=== PATIENT | male | born 1950 | race American Indian/Alaskan Native ===

== ENCOUNTER 2016-12-31 06:35 | Inpatient (IN) | payer OTHER, BC ==
[2016-12-31] MEDS ORDERED: ONDANSETRON 4 MG/2 ML VIAL IVP ONE (06:55)
[2016-12-31] MEDS ORDERED: NS 1,000 ML IV ONE (06:55)
[2016-12-31 07:04] LABS: % IMMATURE GRANULYOCYTES 0.3 % (0.0-1.1); ABSOLUTE IMMATURE GRANULOCYTES 0.03 10^3/uL (0.00-0.10); ADD DIFF? NO; ADD MORPH? NO; ADD SCAN? NO; ATYPICAL LYMPHOCYTE FLAG 0 (0-99); FRAGMENT RBC FLAG 0 (0-99); HEMATOCRIT 39.8 % (40.0-51.0); HEMOGLOBIN 13.4 g/dL (13.7-17.5); LEFT SHIFT FLG 20 (0-99); LIPEMIA HEMOLYSIS FLAG 80 (0-99); MEAN CELL HEMOGLOBIN 30.3 pg (27.9-34.1); MEAN CELL HEMOGLOBIN CONCENTR. 33.7 g/dL (32.4-36.7); MEAN PLATELET VOLUME 9.7 fL (8.7-11.7); PLATELET CLUMPS FLAG 0 (0-99); PLATELET COUNT 250 10^3/uL (150-400); RED BLOOD CELL COUNT 4.42 10^6/uL (4.40-6.38); RED CELL DISTRIBUTION WIDTH 13.5 % (11.5-15.2)
--- NOTE | 2016-12-31 07:14 | CPEKG ---
Heart Rate: 78 RR Interval: 769 QRSD Interval: 156 QT Interval: 448 QTC Interval: 511 QRS [place]metto: 30 T Wave Palmetto: 10 EKG Severity - ABNORMAL ECG - EKG Impression: Normal sinus rhythm EKG Impression: MULTIFORM VENTRICULAR PREMATURE COMPLEXES EKG Impression: RIGHT BUNDLE BRANCH BLOCK EKG Impression: inferior Q-waves Electronically Signed By: Vianney Middleton 31-Dec-2016 15:24:00
--- NOTE | 2016-12-31 07:21 | EDPHY ---
H & P HPI/ROS: CHIEF COMPLAINT: Abdominal pain, vomiting. HISTORY OF PRESENT ILLNESS: The patient is a 66-year-old male with a history of diabetes who presents with 7/10 upper abdominal achiness that began 4 days ago. He admits feeling diaphoretic and flushed at onset. The pain has been intermittent since then. It is worse at night and worse after he eats. He admits associated nausea and vomiting since last night. No associated fever or diarrhea. No prior similar symptoms. REVIEW OF SYSTEMS: A complete 10-point review of systems was performed and is negative except for those items mentioned in the HPI. Past Medical/Surgical History: Hypertension, diabetes, cardiac bypass x4, cardiac stents, glaucoma. Social History: , lives in [place]. Smoking Status: Never smoked Physical Exam: General Appearance: Alert, actively vomiting Eyes: Pupils equal and round, no conjunctival pallor or injection ENT, Mouth: Mucous membranes moist Neck: Normal inspection Respiratory: Lungs are clear to auscultation Cardiovascular: Regular rate and rhythm Gastrointestinal: Abdomen is soft, epigastric tenderness, normal bowel sounds Neurological: A&O, nonfocal, normal gait Skin: Warm and dry, no rash Extremities: Nontender, no pedal edema Psychiatric: Mood and affect normal Constitutional: Initial Vital Signs Temperature (C) 36.6 C 12/31/16 06:37 Heart Rate 81 12/31/16 06:37 Respiratory Rate 18 12/31/16 06:37 Blood Pressure 150/72 H 12/31/16 06:37 O2 Sat (%) 94 12/31/16 06:37 O2 Delivery Mode Nasal Cannula O2 (L/minute) 2 Allergies/Adverse Reactions: No Known Allergies Allergy (Unverified 12/31/16 06:44) Home Medications: Medication Instructions Recorded Albuterol [Proventil Inhaler HFA 2 puffs IH QID PRN 12/31/16 (*)] Albuterol [Proventil Neb] 3 ml IH QID PRN 12/31/16 Aspirin EC [Aspirin EC 81 mg (*)] 81 mg PO DAILY 12/31/16 Budesonide/Formoterol 160/4.5 1 puffs IH BID 12/31/16 [Symbicort 160-4.5 Mcg Inh (*)] C/E/Zn/Cu/OM3/DHA/EPA/LUT/ZEAX 1 each PO BID 12/31/16 [Preservision Areds 2 Softgel] Carvedilol [Coreg] 12.5 mg PO BIDMEAL 12/31/16 Cetirizine [ZyrTEC 10 mg (*)] 10 mg PO HS 12/31/16 Dorzolamide/Timolol [Cosopt (*)] 1 drops EACHEYE BID 12/31/16 Fluticasone Nasal [Flonase Nasal 2 sprays NASAL HS 12/31/16 King (RX)] Glucosamine Sulfate [Glucosamine 500 mg PO BID 12/31/16 Sulfate 500 MG (*)] Hydrochlorothiazide [HCTZ (*)] 25 mg PO DAILY 12/31/16 Latanoprost 0.005% [Xalatan 0.005% 1 drops EACHEYE HS 12/31/16 (*)] Losartan Potassium 100 mg PO DAILY 12/31/16 Multivitamins [Multivitamin (*)] 1 each PO DAILY 12/31/16 Repaglinide [Prandin] 1 mg PO AC 12/31/16 Repaglinide [Prandin] 2 mg PO AC 12/31/16 Simvastatin 40 mg PO HS 12/31/16 Tadalafil [Cialis] 20 mg PO DAILY PRN 12/31/16 glipiZIDE [Glipizide] 5 mg PO BIDAC 12/31/16 metFORMIN HCL [Glucophage 500 mg 500 mg PO BIDMEAL 12/31/16 (*)] Medical Decision Making - Diagnostics EKG Interpretation: EKG interpreted by me reveals normal sinus rhythm with PVCs, normal axis, ST and T segments normal. Right bundle branch block. Interpretation: abnormal EKG Imaging Results: Imaging Impressions Abdomen Ultrasound 12/31/16 07:29 Impression: 1. Cholelithiasis without evidence of cholecystitis. 2. Fatty liver. 3. Limited study as above. Findings discussed with Vianney Middleton 12/31/2016 at 8:37. ED Course/Re-evaluation: This patient presents with epigastric pain and vomiting, worsened with eating. Concerning for biliary colic versus PUD. An IV was established and labs ordered. 4mg IV Zofran and 10mg IV Reglan administered for nausea and vomiting. 1L IV saline administered for rehydration. RUQ ultrasound ordered to rule out cholecystitis. I reviewed the patient's laboratory studies. LFTs elevated and lipase 5782, possibly secondary to gallstone pancreatitis. Patient will be admitted to hospitalist service. 4mg IV Morphine administered for pain. 0819: Consulted with Pamella Sal, hospitalist. She accepts admission for Dr. Bales. 0838: Ultrasound results conveyed to me by Dr. Calzada, radiology as gallstones, no CBD dilation. See Imaging Results section for official report. 0902: Consulted with Dr. Penn, GI. He will consult on the patient. MRCP ordered. Abdominal exam remains unchanged. Differential Diagnosis: Differential diagnosis includes though it is not limited to appendicitis, cholecystitis, diverticulitis, pyelonephritis, bowel perforation, small bowel obstruction. - Data Points Laboratory Results: Laboratory Results 12/31/16 06:55 12/31/16 06:55 12/31/16 12/31/16 06:55 06:55 WBC 8.65 10^3/uL 10^3/uL (3.80-9.50) RBC 4.42 10^6/uL 10^6/uL (4.40-6.38) Hgb 13.4 g/dL L g/dL (13.7-17.5) Hct 39.8 % L % (40.0-51.0) MCV 90.0 fL fL (81.5-99.8) MCH 30.3 pg pg (27.9-34.1) MCHC 33.7 g/dL g/dL (32.4-36.7) RDW 13.5 % % (11.5-15.2) Plt Count 250 10^3/uL 10^3/uL (150-400) MPV 9.7 fL fL (8.7-11.7) Neut % (Auto) 87.6 % H % (39.3-74.2) Lymph % (Auto) 5.7 % L % (15.0-45.0) [place] % (Auto) 6.2 % % (4.5-13.0) Eos % (Auto) 0.0 % L % (0.6-7.6) Baso % (Auto) 0.2 % L % (0.3-1.7) Nucleat RBC Rel Count 0.0 % % (0.0-0.2) Absolute Neuts (auto) 7.57 10^3/uL H 10^3/uL (1.70-6.50) Absolute Lymphs (auto) 0.49 10^3/uL L 10^3/uL (1.00-3.00) Absolute Monos (auto) 0.54 10^3/uL 10^3/uL (0.30-0.80) Absolute Eos (auto) 0.00 10^3/uL L 10^3/uL (0.03-0.40) Absolute Basos (auto) 0.02 10^3/uL 10^3/uL (0.02-0.10) Absolute Nucleated RBC 0.00 10^3/uL 10^3/uL (0-0.01) Immature Gran % 0.3 % % (0.0-1.1) Immature Gran # 0.03 10^3/uL 10^3/uL (0.00-0.10) Sodium 142 mEq/L mEq/L (134-144) Potassium 3.7 mEq/L mEq/L (3.5-5.2) Chloride 100 mEq/L mEq/L (97-110) Carbon Dioxide 29 mEq/l mEq/l (22-31) Anion Gap 13 mEq/L mEq/L (8-16) BUN 25 mg/dL H mg/dL (7-23) Creatinine 1.1 mg/dL mg/dL (0.7-1.3) Estimated GFR > 60 Glucose 209 mg/dL H mg/dL (70-100) Calcium 9.9 mg/dL mg/dL (8.5-10.4) Total Bilirubin 1.6 mg/dL H mg/dL (0.1-1.4) Conjugated Bilirubin 0.6 mg/dL H mg/dL (0.0-0.5) Unconjugated Bilirubin 1.0 mg/dL mg/dL (0.0-1.1) AST 699 IU/L H IU/L (17-59) ALT 736 IU/L H IU/L (21-72) Alkaline Phosphatase 142 IU/L H IU/L (38-126) Total Protein 7.2 g/dL g/dL (6.3-8.2) Albumin 4.4 g/dL g/dL (3.5-5.0) Lipase 5782.0 IU/L H IU/L (23-300) Medications Given: Discontinued Medications Sodium Chloride (Ns) 1,000 mls @ 0 mls/hr IV ONCE ONE PRN Reason: Wide Open Stop: 12/31/16 06:56 Last Admin: 12/31/16 07:05 Dose: 1,000 mls Metoclopramide HCl (Reglan Injection) 10 mg IVP EDNOW ONE Stop: 12/31/16 07:23 Last Admin: 12/31/16 07:25 Dose: 10 mg Morphine Sulfate (Morphine) 4 mg IVP Q1H PRN PRN Reason: Pain, Severe Unable to Take PO Stop: 12/31/16 10:17 Last Admin: 12/31/16 10:08 Dose: 4 mg Ondansetron HCl (Zofran) 4 mg IVP EDNOW ONE Stop: 12/31/16 06:56 Last Admin: 12/31/16 07:04 Dose: 4 mg Departure - Departure Disposition: [facility] Acute Clinical Impression: Gallstone pancreatitis Condition: Fair Report Scribed for: Vianney Middleton Report Scribed by: Romeo Fernandez Date of Report: 12/31/16 Time of Report: 07:17 Physician Review and Approval Statement: 12/31/16 07:17 Portions of this note were transcribed by a biomedical engineering technologist. I personally performed a history, physical exam, medical decision making, and confirmed accuracy of information the transcribed note.
[2016-12-31] MEDS ORDERED: METOCLOPRAMIDE 10 MG/2 ML VIAL IVP ONE (07:22)
[2016-12-31 07:26] LABS: ALANINE AMINOTRANSFERASE 736 IU/L (21-72); ALBUMIN 4.4 g/dL (3.5-5.0); ALKALINE PHOSPHATASE 142 IU/L (38-126); ANION GAP 13 mEq/L (8-16); ASPARTATE AMINOTRANSFERASE 699 IU/L (17-59); BILIRUBIN,TOTAL 1.6 mg/dL (0.1-1.4); BILIRUBIN-CONJUGATED 0.6 mg/dL (0.0-0.5); CALCIUM 9.9 mg/dL (8.5-10.4); CARBON DIOXIDE 29 mEq/l (22-31); CHLORIDE 100 mEq/L (97-110); CREATININE 1.1 mg/dL (0.7-1.3); GLOMERULAR FILTRATION RATE > 60; GLUCOSE 209 mg/dL (70-100); POTASSIUM 3.7 mEq/L (3.5-5.2); SODIUM 142 mEq/L (134-144); TOTAL PROTEIN 7.2 g/dL (6.3-8.2)
[2016-12-31] MEDS ORDERED: ONDANSETRON DISINTEGRATING 4 MG TAB PO PRN (10:07)
[2016-12-31] MEDS ORDERED: ACETAMINOPHEN 325 MG TAB PO PRN (10:07)
[2016-12-31] MEDS ORDERED: ONDANSETRON 4 MG/2 ML VIAL IVP PRN (10:07)
[2016-12-31] MEDS ORDERED: NALOXONE HCL 0.4 MG/ML INJ IVP PRN (10:09)
[2016-12-31] MEDS ORDERED: HYDROmorphONE/DILAUDID 6 MG/30 ML PCA IV PRN (10:09)
[2016-12-31] MEDS: NS W/ 20 KCl/L 1,000 ML IV SCH ×2 (10:44→21:38)
[2016-12-31] MEDS ORDERED: ASPIRIN 81 MG CHEWABLE TAB PO SCH (11:00)
[2016-12-31] MEDS ORDERED: NON-FORMULARY NEW DRUG (Losartan Potassium [Losartan Potassium] 100 MG) PO SCH (11:00)
[2016-12-31] MEDS ORDERED: NON-FORMULARY NEW DRUG (Carvedilol [Coreg] 12.5 MG) PO SCH ×2 (11:00→18:00)
[2016-12-31] MEDS ORDERED: ALBUTEROL 3 ML DEYVIAL IH PRN (11:19)
[2016-12-31] MEDS ORDERED: ALBUTEROL 60 PUFFS/8 GM MDI IH PRN (11:19)
[2016-12-31] MEDS ORDERED: CARVEDILOL 6.25 MG TAB PO SCH (11:30)
[2016-12-31 12:07] LABS: COLOR YELLOW; LEUKOCYTE ESTERASE,URINE NEGATIVE (NEGATIVE); NITRITE,URINE NEGATIVE (NEGATIVE)
[2016-12-31] MEDS: LOSARTAN POTASSIUM 50 MG TAB PO SCH (13:16)
[2016-12-31] MEDS: CARVEDILOL 25 MG TAB PO SCH ×2 (13:17→18:50)
[2016-12-31] MEDS: BUDESONIDE/FORMOTEROL 160/4.5 60 PUFFS/MDI IH SCH ×2 (13:40→21:39)
[2016-12-31] MEDS: ASPIRIN EC 81 MG TAB PO SCH (14:38)
--- NOTE | 2016-12-31 14:49 | GHP ---
[f rep st] HISTORY AND PHYSICAL DATE OF ADMISSION: 12/31/2016 CHIEF COMPLAINT: Abdominal pain. HISTORY OF PRESENT ILLNESS: This is a 66-year-old male with a history of coronary artery disease, d iabetes, and asthma who has had intermittent abdominal pain, quite severe at times for the last 5 da ys. This is not necessarily related to meals. It has been sharp and mostly epigastric; however, ye day he was flying and right after breakfast he had sharp epigastric pain. He has had nausea and vomiting. He has no fever, but has had chills. He has never had any episodes like this before. H is breathing is stable. REVIEW OF SYSTEMS: A 10-point review of systems was obtained and negative. PAST MEDICAL HISTORY: 1. Coronary artery disease, status post CABG. 2. Hypertension. 3. Type 2 diabetes. 4. Glaucoma. 5. Asthma. SOCIAL HISTORY: No smoking, is . He lives in [place]. He works. 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 FAMILY HISTORY: Reviewed and noncontributory. PHYSICAL EXAM: VITAL SIGNS: Afebrile, blood pressure is 122/79, heart rate 85, oxygen saturation 9 7% on 2 L. GENERAL: Patient is well-developed, in no apparent distress. HEENT: Nonicteric sclera e. Extraocular movements intact. Moist mucous membranes. NECK: Supple. No thyromegaly. LUNGS: Good effort. Clear to auscultation bilaterally. CARDIOVASCULAR: Regular rate and rhythm. No mur murs, gallops. ABDOMEN: Positive bowel sounds. Soft. Some mild epigastric tenderness. No reboun d or guarding. EXTREMITIES: No clubbing, cyanosis, or edema. SKIN: Without rash, dry, intact. N EUROLOGIC: Alert and oriented x3. Moving all 4 extremities equally. PSYCH: Normal affect. LABS: White count is 8, hemoglobin 13, platelets 250. Sodium 142, potassium 3.7, total bilirubin w as elevated at 1.6, was conjugated, slightly elevated at 0.6. AST is 699, ALT is 736, alk phos 142, lipase 5000. Abdominal ultrasound shows cholelithiasis without cholecystitis. ASSESSMENT AND PLAN: 1. This is a 66-year-old male with gallstone pancreatitis. Plan: Patient with elevated liver func tion tests and choledocholithiasis. Gallstones are the most likely cause for his pancreatitis. He does not have any biliary dilatation or abdominal ultrasound. MRCP has been ordered to make sure he does not have any retained stone. If this is negative, will continue bowel rest and advance diet a s tolerated. He will eventually need a cholecystectomy, but this could probably be done in [place] when he gets back. 2. History of coronary artery disease. He will continue his medications. 3. Asthma continue medicines. 4. Type 2 diabetes. Hold metformin. 5. Admission. Patient is to admitted under full admission status. Case discussed with JUAN Christian records reviewed and summarized in HPI. /[id number]/MODL
--- NOTE | 2016-12-31 15:29 | GCON ---
[f rep st] CONSULTATION GI CONSULTATION. DATE OF CONSULTATION: 12/31/2016 REASON FOR CONSULTATION: Acute pancreatitis. HISTORY OF PRESENT ILLNESS: The patient is a 66-year-old gentleman who is visiting from [place] who developed acute onset of severe epigastric abdominal pain with radiation in the back as well as nausea and vomiting on the flight to [place]. This persisted and he presented to the emergency room at [facility] at 5 a.m. today and was noted to have a lipase of over 5000. Right upper quadrant ultrasound showed gallstones, albeit the common bile duct was obscured to visualization. The patient has had some intermittent epigastric abdominal pain over the last several months. He has had no prior history of gallbladder disease. I was asked by Dr. Bales to see the patient for evaluation of his pancreatitis and potential ERCP. MEDICATIONS PRIOR TO ADMISSION: Albuterol inhaler 2 puffs q.i.d. aspirin 81 mg daily Symbicort 160/4.1, mcg inhaler 1 puff b.i.d Carvedilol 2.5 mg p.o. b.i.d., Zyrtec 10 mg p.o. at bedtime dorzolamide/timolol 1 drop each eye b.i.d. glucosamine sulfate 500 mg p.o. b.i.d. Hydrochlorothiazide 25 mg p.o. daily losartan 100 mg p.o. daily multivitamin daily Prandin 1 mg p.o. a.c simvastatin 40 mg p.o. at bedtime Cialis 20 mg p.o. p.r.n. glipizide 5 mg p.o. b.i.d. metformin 500 mg p.o. b.i.d. ALLERGIES: None. PAST MEDICAL HISTORY: Atherosclerotic cardiovascular disease with status post CABG x4 and cardiac stenting, essential hypertension, type 2 diabetes mellitus and glaucoma. SURGICAL HISTORY: Bypass surgery, as noted above. FAMILY HISTORY: Negative for gallbladder disease or GI malignancies. 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 He is here visiting. He does not smoke tobacco or drink alcohol. REVIEW OF SYSTEMS: Negative for comprehensive review of systems. PHYSICAL EXAMINATION: VITAL SIGNS: Temperature 36.6 Celsius, pulse 90 regular , blood pressure 126/68, respiratory rate was 16, O2 saturation 98% on 2 L per nasal cannula. GENERAL: Well-developed, overweight gentleman lying in bed, in no apparent distress. INTEGUMENT: Clear. HEENT: Head atraumatic, normocephalic. Pupils equal, round, reactive to light. EOMs were intact. Sclerae nonicteric. Nares patent. Mucous membranes moist. Dentition good. NECK: Supple. Trachea midline. LYMPHATICS: No cervical, axillary adenopathy. PULMONARY: Lungs clear to percussion and auscultation. CARDIOVASCULAR: Regular rhythm and rate. Normal S1, S2 without murmur. Sternal scar noted. No pedal edema. Peripheral pulses normal. GASTROINTESTINAL: Protuberant. Positive bowel sounds. No liver or spleen tip palpable. No masses or tenderness noted. No fluid wave noted. EXTREMITIES: Without deformity. NEURO: Patient is alert, oriented x3. There were no focal neurologic deficits. LABS: White count 8.65, hemoglobin 13.4, hematocrit 39.4, platelets 250,000. Electrolytes normal. BUN 25, creatinine 1.1. Total bilirubin 1.6, conjugated 0.6, unconjugated 1.0. AST 699, ALT 736, ALP 142, lipase 5782. Urinalysis negative. IMPRESSION: 1. Acute gallstone pancreatitis. 2. Cholelithiasis. 3. Severe atherosclerotic cardiovascular disease with status post coronary artery stenting and quadruple bypass. 4. Type 2 diabetes mellitus. 5. Essential hypertension. 6. Obesity. RECOMMENDATION: 1. N.p.o. 2. MRCP to assess need for ERCP. 3. Patient will need a cholecystectomy in the near future. He states that he would prefer to have gallbladder surgery on return to [place], [place]. /[id number]/MODL MTDD
[2016-12-31] MEDS: CETIRIZINE 10 MG TAB PO SCH (20:51)
[2016-12-31] MEDS: LATANOPROST 0.005% 2.5 ML OPHT DROPS EACHEYE SCH (21:37)
[2016-12-31] MEDS: DORZOLAMIDE/TIMOLOL 10 ML OPHT.BTL EACHEYE SCH (21:38)
[2016-12-31] MEDS: FLUTICASONE NASAL 120 SPRAYS/16 GM MDI EACHNARE SCH (21:38)
[2017-01-01 05:52] LABS: % IMMATURE GRANULYOCYTES 0.3 % (0.0-1.1); ABSOLUTE IMMATURE GRANULOCYTES 0.03 10^3/uL (0.00-0.10); ADD DIFF? NO; ADD MORPH? NO; ADD SCAN? NO; ATYPICAL LYMPHOCYTE FLAG 0 (0-99); FRAGMENT RBC FLAG 0 (0-99); HEMATOCRIT 36.9 % (40.0-51.0); HEMOGLOBIN 11.8 g/dL (13.7-17.5); LEFT SHIFT FLG 10 (0-99); LIPEMIA HEMOLYSIS FLAG 80 (0-99); MEAN CELL HEMOGLOBIN 30.5 pg (27.9-34.1); MEAN CELL VOLUME 95.3 fL (81.5-99.8); PLATELET CLUMPS FLAG 0 (0-99); PLATELET COUNT 185 10^3/uL (150-400); RED BLOOD CELL COUNT 3.87 10^6/uL (4.40-6.38); RED CELL DISTRIBUTION WIDTH 13.8 % (11.5-15.2)
[2017-01-01 06:03] LABS: ALANINE AMINOTRANSFERASE 431 IU/L (21-72); ALBUMIN 3.3 g/dL (3.5-5.0); ALKALINE PHOSPHATASE 100 IU/L (38-126); ANION GAP 9 mEq/L (8-16); ASPARTATE AMINOTRANSFERASE 216 IU/L (17-59); BILIRUBIN,TOTAL 1.1 mg/dL (0.1-1.4); CALCIUM 8.2 mg/dL (8.5-10.4); CARBON DIOXIDE 30 mEq/l (22-31); CHLORIDE 105 mEq/L (97-110); GLOMERULAR FILTRATION RATE > 60; GLUCOSE 99 mg/dL (70-100); POTASSIUM 3.9 mEq/L (3.5-5.2); SODIUM 144 mEq/L (134-144); TOTAL PROTEIN 5.9 g/dL (6.3-8.2)
[2017-01-01] MEDS: LOSARTAN POTASSIUM 50 MG TAB PO SCH (08:44)
[2017-01-01] MEDS: CARVEDILOL 25 MG TAB PO SCH ×2 (08:45→18:50)
[2017-01-01] MEDS: ASPIRIN EC 81 MG TAB PO SCH (08:45)
[2017-01-01] MEDS: ENOXAPARIN 40 MG/0.4 ML SYR SC SCH (08:50)
[2017-01-01] MEDS: DORZOLAMIDE/TIMOLOL 10 ML OPHT.BTL EACHEYE SCH ×2 (08:53→20:54)
[2017-01-01] MEDS: BUDESONIDE/FORMOTEROL 160/4.5 60 PUFFS/MDI IH SCH ×2 (08:54→20:22)
[2017-01-01] MEDS ORDERED: ASPIRIN EC 81 MG TAB PO SCH (09:00)
--- NOTE | 2017-01-01 11:31 | SOAPPROG ---
SOAP Progress Note Assessment/Plan: Assessment: Cholelithiasis, suspect choledocholithiases. Patient is a diabetic with two episodes of abdominal pain this week and pancreatitis c/w gallstone pancreatitis. Discussed options. Patient would like to travel back to [place] and have cholecystectomy there. Will plan on ERCP tomorrow morning. Plan: 1. Clear liquid diet today 2. NPO after midnight. 01/01/17 11:35 Subjective: CC: Abdominal pancreatitis. Pain is significantly improved. Patient is feeling hungry. MRCP with non dilated ducts but there is a questionable filling defect in CBD. Objective: Vital Signs Temp Pulse Resp BP Pulse Ox 36.8 C 88 16 109/70 93 01/01/17 08:43 01/01/17 10:40 01/01/17 10:40 01/01/17 10:40 01/01/17 10:40 Laboratory Results 01/01/17 05:36 01/01/17 05:36 12/31/16 01/01/17 01/02/17 05:59 05:59 05:59 Intake Total 3332 Output Total 675 200 Balance 2657 -200 Generic Name Dose Route Start Last Admin Trade Name Freq PRN Reason Stop Dose Admin Acetaminophen 650 mg 12/31/16 10:07 Tylenol PO 06/29/17 10:06 Q4HRS PRN Pain, Mild/Fever, Can Take PO Albuterol 2 puffs 12/31/16 11:19 Proventil Inhaler 06/29/17 11:18 QID PRN DYSPNEA USE 1ST Albuterol 3 ml 12/31/16 11:19 Proventil Neb 06/29/17 11:18 QID PRN DYSPNEA USE 2ND Aspirin Buffered 81 mg 12/31/16 13:30 01/01/17 08:45 Aspirin Ec PO 06/29/17 13:29 81 mg DAILY JUANJOSE Administration Budesonide/Formoterol Fumarate 1 puffs 12/31/16 11:00 01/01/17 08:54 Symbicort 160-4.5 Mcg Inhaler 06/29/17 10:59 1 puffs BID JUANJOSE Administration Carvedilol 12.5 mg 12/31/16 11:30 01/01/17 08:45 Coreg PO 06/29/17 11:29 12.5 mg BIDMEAL JUANJOSE Administration Cetirizine HCl 10 mg 12/31/16 21:00 12/31/16 20:51 Zyrtec PO 06/29/17 20:59 Not Given HS JUANJOSE Dorzolamide/Timolol 1 drops 12/31/16 21:00 01/01/17 08:53 Cosopt EACHEYE 06/29/17 20:59 1 drop BID JUANJOSE Administration Enoxaparin Sodium 40 mg 01/01/17 09:00 01/01/17 08:50 Lovenox SC 06/30/17 08:59 Not Given DAILY JUANJOSE Fluticasone Propionate 2 sprays 12/31/16 21:00 12/31/16 21:38 Flonase Nasal [place] EACHNARE 06/29/17 20:59 2 sprays HS JUANJOSE Administration Hydromorphone HCl 0 mg 12/31/16 10:09 12/31/16 10:30 Dilaudid Isobutylene Operator Chief IV 01/10/17 10:08 6 mg PRN PRN Administration Pain, Severe Unable to Take PO Protocol Potassium Chloride/Sodium Chloride 1,000 mls @ 125 mls/hr 12/31/16 10:15 01/12 21:38 Ns W/ 20 Kcl/L IV 06/29/17 10:14 1,000 mls CONT JUANJOSE Administration Latanoprost 1 drops 12/31/16 21:00 12/31/16 21:37 Xalatan 0.005% EACHEYE 06/29/17 20:59 1 drop HS JUANJOSE Administration Losartan Potassium 100 mg 12/31/16 11:30 01/01/17 08:44 Cozaar PO 06/29/17 11:29 100 mg DAILY JUANJOSE Administration Naloxone HCl 0 mg 12/31/16 10:09 Narcan IVP 06/29/17 10:08 PRN PRN Respiratory depression Protocol Ondansetron HCl 4 mg 12/31/16 10:07 Zofran IVP 06/29/17 10:06 Q4HRS PRN Nausea/Vomiting, Can't Take PO Ondansetron HCl 4 mg 12/31/16 10:07 Zofran Odt PO 06/29/17 10:06 Q4HRS PRN Nausea/Vomiting, Use 1st Discontinued Medications Generic Name Dose Route Start Last Admin Trade Name Freq PRN Reason Stop Dose Admin Aspirin 81 mg 12/31/16 11:00 12/31/16 16:47 Aspirin PO 06/29/17 10:59 Not Given DAILY [facility] Aspirin Buffered 81 mg 01/01/17 09:00 Aspirin Ec PO 06/30/17 08:59 DAILY [facility] Carvedilol 6.25 mg 12/31/16 11:30 Coreg PO 06/29/17 11:29 BIDMEAL [facility] Sodium Chloride 1,000 mls @ 0 mls/hr 12/31/16 06:55 12/31/16 07:05 Ns IV 12/31/16 06:56 1,000 mls ONCE ONE Administration Wide Open Metoclopramide HCl 10 mg 12/31/16 07:22 12/31/16 07:25 Reglan Injection IVP 12/31/16 07:23 10 mg EDNOW ONE Administration Miscellaneous Medication 12.5 mg 12/31/16 18:00 Carvedilol [Coreg] PO 06/29/17 17:59 BIDMEAL [facility] Morphine Sulfate 4 mg 12/31/16 08:16 12/31/16 10:08 Morphine IVP 12/31/16 10:17 4 mg Q1H PRN Administration Pain, Severe Unable to Take PO Morphine Sulfate Confirm 12/31/16 08:21 Morphine Administered 12/31/16 08:22 Dose 4 mg .ROUTE .STK-MED ONE Ondansetron HCl 4 mg 12/31/16 06:55 12/31/16 07:04 Zofran IVP 12/31/16 06:56 4 mg EDNOW ONE Administration Physical Exam - Physical Exam General Appearance: alert, no apparent distress Respiratory: chest non-tender, lungs clear, normal breath sounds Cardiac/Chest: regular rate, rhythm Abdomen: normal bowel sounds, non-tender, soft Skin: normal color, warm/dry Neuro/Psych: no motor/sensory deficits, alert, normal mood/affect, oriented x 3 ICD10 Worksheet Patient Problems: Problems Problem Status Onset Gallstone pancreatitis Acute
[2017-01-01] MEDS: NS W/ 20 KCl/L 1,000 ML IV SCH ×2 (13:37→22:21)
--- NOTE | 2017-01-01 15:19 | HOSPPROG ---
Hospitalist Progress Note Assessment/Plan: * acute presumed gallstone pancreatitis * MRCP suggest possible stone in distal biliary duct * Will go for ERCP tomorrow * Start clear liquid diet * type 2 diabetes * Hold metformin * history of coronary disease Subjective: Pain is better. No nausea vomiting Objective: Vital Signs Temp Pulse Resp BP Pulse Ox 36.5 C 86 16 114/71 94 01/01/17 13:08 01/01/17 13:08 01/01/17 13:08 01/01/17 13:08 01/01/17 13:08 Laboratory Results 01/01/17 05:36 01/01/17 05:36 12/31/16 01/01/17 01/02/17 05:59 05:59 05:59 Intake Total 3332 Output Total 675 200 Balance 2657 -200 - Physical Exam Constitutional: no apparent distress, appears nourished, not in pain Eyes: anicteric sclera, EOMI Ears, Nose, Mouth, Throat: moist mucous membranes, hearing normal Cardiovascular: regular rate and rhythym, no murmur, rub, or gallop Respiratory: no respiratory distress, no rales or rhonchi, clear to auscultation Gastrointestinal: normoactive bowel sounds, soft, non-tender abdomen, no palpable masses Skin: warm Neurologic: AAOx3 Psychiatric: interacting appropriately, not anxious, not encephalopathic, thought process linear ICD10 Worksheet Patient Problems: Problems Problem Status Onset Gallstone pancreatitis Acute
[2017-01-01] MEDS: LATANOPROST 0.005% 2.5 ML OPHT DROPS EACHEYE SCH (20:54)
[2017-01-01] MEDS: FLUTICASONE NASAL 120 SPRAYS/16 GM MDI EACHNARE SCH (20:54)
[2017-01-01] MEDS: CETIRIZINE 10 MG TAB PO SCH (20:55)
[2017-01-02] MEDS: NS W/ 20 KCl/L 1,000 ML IV SCH (05:17)
[2017-01-02] MEDS: LOSARTAN POTASSIUM 50 MG TAB PO SCH ×2 (07:49→10:38)
[2017-01-02] MEDS: BUDESONIDE/FORMOTEROL 160/4.5 60 PUFFS/MDI IH SCH ×2 (07:50→19:54)
[2017-01-02] MEDS: CARVEDILOL 25 MG TAB PO SCH ×3 (07:50→18:10)
[2017-01-02] MEDS: DORZOLAMIDE/TIMOLOL 10 ML OPHT.BTL EACHEYE SCH ×2 (07:50→21:03)
[2017-01-02] MEDS: ASPIRIN EC 81 MG TAB PO SCH (07:54)
[2017-01-02] MEDS: ENOXAPARIN 40 MG/0.4 ML SYR SC SCH (07:54)
[2017-01-02] MEDS ORDERED: GLUCAGON,HUMAN RECOMBINANT 1 MG VIAL ONE (08:12)
[2017-01-02] MEDS ORDERED: IOTHALAMATE MEG (CONRAY) 50 ML VIAL IV ONE (08:13)
[2017-01-02] MEDS ORDERED: fentaNYL 250 MCG/5 ML INJ ONE (08:31)
[2017-01-02] MEDS ORDERED: PROPOFOL/EMULSION 500 MG/50 ML BOTTLE IV ONE (08:32)
[2017-01-02] MEDS ORDERED: MIDAZOLAM 2 MG/2 ML VIAL ONE (08:35)
[2017-01-02] MEDS ORDERED: INDOMETHACIN 50 MG SUPP PR ONE ×2 (09:06→09:14)
[2017-01-02] MEDS ORDERED: ALBUTEROL 3 ML DEYVIAL ONE (09:36)
--- NOTE | 2017-01-02 09:44 | GPN ---
[f rep st] PROCEDURE NOTE PROCEDURE PERFORMED: Endoscopic retrograde cholangiopancreatography with sphincterotomy. PREOPERATIVE DIAGNOSES: Gallstone pancreatitis, cholelithiasis. POSTOPERATIVE DIAGNOSES: Gallstone pancreatitis, cholelithiasis, status post ERCP with sphincteroto my and bile duct drainage. INDICATION: 66-year-old gentleman presented to the hospital with biliary colic and gallstone pancre atitis. Patient had 2 episodes of epigastric pain prior to admission. He was admitted to the [facility] with elevated lipase, liver function tests with elevated total bili of 1.6 with an AST of 699 an d ALT of 736. Clinical presentation consistent with gallstone pancreatitis. He underwent MRCP with nondilated biliary duct with questionable filling defect in the common bile duct. Patient presents now for ERCP. PHYSICAL EXAM: VITAL SIGNS: Stable. LUNGS: Clear. CARDIAC: Normal S1, S2 without murmur. PERMIT: Procedure was explained to the patient. Risks and benefits of the procedure were outlined to the patient. Oral consent was obtained. PREOPERATIVE MEDICATIONS: General anesthesia. FINDINGS/PROCEDURE: Patient placed in the prone position. The GGF-180 video scope was passed in th e oropharynx under direct visualization into the esophagus, stomach, through the pylorus into the fi rst and second portion of the duodenum. There was mild antral gastritis and duodenitis identified. Endoscope was shortened. Papillary orifice was identified. Normal appearing. Ultratome sphincter otome was placed in the papillary orifice. An 0.035 Jagwire was placed in the papillary orifice ini tially into the pancreatic duct and then into the common bile duct. Cholangiogram was obtained. Th ere were normal-appearing intrahepatic and extrahepatic bile ducts. Questionable filling defect. S phincterotomy was performed with good bile drainage. Bile duct was under a centimeter. It was up t o 7 mm in size. The sphincterotome was then withdrawn. A 9-12 balloon was then passed over the wir e into the hepatic confluence. The balloon was inflated to 12 mm. The duct was dredged several bernabe es. A small amount of debris was removed. No obvious stones identified. There was good bile drain age. The balloon and wire were then withdrawn. The endoscope was then withdrawn. IMPRESSION: Gallstone pancreatitis with questionable choledocholithiasis, status post ERCP and sphi ncterotomy with good bile drainage. RECOMMENDATIONS: When awake and alert without abdominal pain, will start on clear liquid diet and a dvance as tolerated. Recommend elective cholecystectomy at some point, either during this hospitali zation or after discharge. Thank you for allowing me to participate in the care of this patient. /[id number]/MODL
[2017-01-02] MEDS ORDERED: D50W 25 GM/50 ML SYR IVP PRN (11:14)
[2017-01-02] MEDS ORDERED: FUROSEMIDE 20 MG/2 ML VIAL IVP ONE ×2 (11:15→13:30)
[2017-01-02] MEDS: INSULIN LISPRO 100 UNIT/ML SC SCH ×2 (12:49→18:04)
[2017-01-02] MEDS ORDERED: FUROSEMIDE 20 MG/2 ML VIAL ONE (13:39)
--- NOTE | 2017-01-02 14:34 | HOSPPROG ---
Hospitalist Progress Note Assessment/Plan: * acute presumed gallstone pancreatitis * MRCP suggested possible stone in distal biliary duct * ERCP done today with debris removal and sphincterotomy * will advance diet * cholecystectomy when he gets back home to [place] * type 2 diabetes * restart metformin but hold other medications * start sliding scale * mild fluid overload * oxygen requirement has been slightly increased * will give 1 dose of Lasix and dc IV fluid * history of coronary disease * disposition * will need to catch a flight tomorrow back to [place] Subjective: no abdominal pain Objective: Vital Signs Temp Pulse Resp BP Pulse Ox 36.2 C 94 16 133/82 H 90 L 01/02/17 13:35 01/02/17 13:35 01/02/17 13:35 01/02/17 13:35 01/02/17 13:35 Laboratory Results 01/01/17 05:36 01/01/17 05:36 01/01/17 01/02/17 01/03/17 05:59 05:59 05:59 Intake Total 3332 3321 700 Output Total 675 880 450 Balance 2657 2441 250 - Physical Exam Constitutional: no apparent distress, appears nourished, not in pain Eyes: anicteric sclera, EOMI Ears, Nose, Mouth, Throat: moist mucous membranes, hearing normal, ears appear normal Cardiovascular: regular rate and rhythym, no murmur, rub, or gallop, edema ( trace edema) Respiratory: no respiratory distress, other ( slight crackles in the bases) Gastrointestinal: normoactive bowel sounds, soft, non-tender abdomen, no palpable masses Skin: warm Neurologic: AAOx3 Psychiatric: interacting appropriately, not anxious, not encephalopathic, thought process linear ICD10 Worksheet Patient Problems: Problems Problem Status Onset Gallstone pancreatitis Acute
[2017-01-02] MEDS: ALBUTEROL 200 PUFFS/18 GM MDI IH SCH ×2 (15:07→19:54)
[2017-01-02] MEDS ORDERED: ALBUTEROL 60 PUFFS/8 GM MDI IH SCH (16:00)
[2017-01-02] MEDS ORDERED: IPRATROPIUM/ALBUTEROL 3 ML DEYVIAL IH PRN (17:27)
[2017-01-02] MEDS: metFORMIN HCL 500 MG TAB PO SCH (18:10)
[2017-01-02] MEDS: FLUTICASONE NASAL 120 SPRAYS/16 GM MDI EACHNARE SCH (21:03)
[2017-01-02] MEDS: LATANOPROST 0.005% 2.5 ML OPHT DROPS EACHEYE SCH (21:03)
[2017-01-02] MEDS: CETIRIZINE 10 MG TAB PO SCH (21:04)
[2017-01-02] MEDS ORDERED: INSULIN LISPRO 100 UNIT/ML SC ONE (21:30)
[2017-01-03] MEDS: ALBUTEROL 200 PUFFS/18 GM MDI IH SCH ×2 (04:27→09:41)
[2017-01-03 05:59] LABS: BILIRUBIN,TOTAL 0.7 mg/dL (0.1-1.4); BILIRUBIN-CONJUGATED 0.4 mg/dL (0.0-0.5); BILIRUBIN-UNCONJUGATED 0.3 mg/dL (0.0-1.1); TOTAL PROTEIN 5.6 g/dL (6.3-8.2)
[2017-01-03 06:20] VITALS: BP 134/71; RESP 16
[2017-01-03 09:11] VITALS: PULSE 86; TEMP 97.9; O2SAT 93
[2017-01-03] MEDS: INSULIN LISPRO 100 UNIT/ML SC SCH (09:30)
[2017-01-03] MEDS: CARVEDILOL 25 MG TAB PO SCH (09:35)
[2017-01-03] MEDS: LOSARTAN POTASSIUM 50 MG TAB PO SCH (09:35)
[2017-01-03] MEDS: metFORMIN HCL 500 MG TAB PO SCH (09:35)
[2017-01-03] MEDS: ASPIRIN EC 81 MG TAB PO SCH (09:35)
[2017-01-03] MEDS: BUDESONIDE/FORMOTEROL 160/4.5 60 PUFFS/MDI IH SCH (09:39)
--- NOTE | 2017-01-03 09:47 | GDS ---
[f rep st] DISCHARGE SUMMARY DIAGNOSES: 1. Likely acute gallstone pancreatitis. 2. Diabetes mellitus type 2. 3. Mild fluid overload. 4. History of coronary artery disease, status post coronary artery bypass grafting. IMAGIN. Abdominal ultrasound showing cholelithiasis without evidence of cholecystitis. 2. Abdominal MRI and MRCP showed cholelithiasis with gallbladder edema compatible with pancreatitis , possible small stone in the distal common bile duct, without biliary dilation. PROCEDURES: ERCP performed on 01/02/2017, with the impression being gallstone pancreatitis with que stionable choledocholithiasis, status post ERCP and sphincterotomy with good bile drainage. HOSPITAL COURSE: This 66-year-old man had presented with abdominal pain. Based on imaging and lipa se of [id number], diagnosed with pancreatitis likely due to gallstones. Initial LFTs were elevated, inclu ding an AST of 699 and an ALT of 736. These have markedly improved the day of discharge. He underw ent imaging, which was equivocal for choledocholithiasis. He underwent ERCP with sphincterotomy wit h removal of debris and good bile drainage. On the day of discharge, he is eating and drinking. He has had a bowel movement. Has no significant abdominal pain. I have discussed with him that he wi ll need an elective cholecystectomy. He prefers to do this in [place]. I have held his hydrochlor othiazide, as well as his Prandin on discharge. Both of these may be associated with pancreatitis. He takes hydrochlorothiazide for fluid overload. He does not have any significant edema now. Bloo d pressure is also on discharge 134/71. He will continue his other cardiac medications. FOLLOWUP: 1. Follow up with PCP for referral to General Surgery for cholecystectomy. 2. Follow up with PCP for ongoing management of diabetes after holding Prandin. 3. Follow up with PCP for management of lower extremity edema while holding hydrochlorothiazide. BILLING: I spent more than 30 minutes on the day of discharge, coordinating care, including kalee manzanares with Dr. Garcia. /[id number]/MODL
[2017-01-03] MEDS: ENOXAPARIN 40 MG/0.4 ML SYR SC SCH (10:06)
[2017-01-03] MEDS: DORZOLAMIDE/TIMOLOL 10 ML OPHT.BTL EACHEYE SCH (11:02)
== END 2017-01-03 11:34 | disposition home or self-care (01) | DRG 440 ==
LOC: F1N 09:34
PROVIDERS: ADMIT Internal Medicine; ATTEND Internal Medicine
PROC: 0FCD8ZZ Extirpation of Matter from Pancreatic Duct, Via Natural or Artificial Opening Endoscopic (ICD-10-PCS; principal; 2017-01-02 08:40)
DX: K85.10 Biliary acute pancreatitis without necrosis or infection (principal); E11.9 Type 2 diabetes mellitus without complications; J45.909 Unspecified asthma, uncomplicated; K80.20 Calculus of gallbladder without cholecystitis without obstruction; E66.9 Obesity, unspecified; Z95.1 Presence of aortocoronary bypass graft; Z95.5 Presence of coronary angioplasty implant and graft
CPT/HCPCS: 96374; J1170; J1610; J1650; J1815; J2250; J2405; J2704; J2765; J3010; Q9961